=== PATIENT | male | born 1960 | race Hispanic/Latino ===

== ENCOUNTER 2018-01-31 14:23 | Emergency (ER) | payer OTHER ==
[2018-01-31] MEDS ORDERED: Bacitracin Zinc 1 Packet ONE (15:05)
--- NOTE | 2018-01-31 15:17 | RAD ---
3 VIEWS RIGHT WRIST: Date: 01/31/18 INDICATION: History of right wrist injury. COMPARISON: None. FINDINGS: There is a mildly displaced, transversely oriented fracture involving the distal radial shaft. The di stal fracture fragment is displaced dorsally and radially one cortex width. No additional fracture is evident. IMPRESSION: Distal radial shaft fracture. POS: [facility]
--- NOTE | 2018-01-31 15:18 | RAD ---
2 VIEWS RIGHT FOREARM: Date: 01/31/18 INDICATION: History of right arm injury with fracture. COMPARISON: None. FINDINGS: There is a transversely oriented fracture involving the distal radial shaft with displacement of the distal fracture fragment radially and posteriorly one cortex width. DRUJ and radiocapitellar alignmen t appear within normal limits. No additional fracture is grossly evident. IMPRESSION: Distal radial shaft fracture. POS: [facility]
== END 2018-01-31 15:27 | disposition home or self-care (01) ==
LOC: ERS 14:23
DX: S52.301A Unspecified fracture of shaft of right radius, initial encounter for closed fracture (principal); W31.9XXA Contact with unspecified machinery, initial encounter; Y99.0 Civilian activity done for income or pay; F17.210 Nicotine dependence, cigarettes, uncomplicated
CPT/HCPCS: 29125

== ENCOUNTER 2018-02-10 10:03 | Day surgery (SDC) | payer OTHER ==
[2018-02-09 13:33] VITALS: BMI 19.3
[2018-02-10] MEDS ORDERED: CEFAZOLIN/Water 2 GM/20 ML SYRINGE ONE (10:51)
[2018-02-10] MEDS ORDERED: Fentanyl 100 MCG/2 ML VIAL ONE ×2 (11:34→13:34)
[2018-02-10] MEDS ORDERED: Bupivacaine HCl 0.5%/Epinephrine 1:200,000/PF 30 ml Vial ONE (12:22)
[2018-02-10] MEDS ORDERED: HYDROcodone/Acetaminophen 5/325 mg Tablet ONE (15:04)
--- NOTE | 2018-02-10 15:15 | OP ---
DATE OF PROCEDURE: 02/10/2018 OPERATION: Open reduction internal fixation of right radial fracture. PREOPERATIVE DIAGNOSIS: Right radial shaft fracture with displacement. POSTOPERATIVE DIAGNOSIS: Right radial shaft fracture with displacement. COMPLICATIONS: None. ESTIMATED BLOOD LOSS: Minimal. SURGEON: Jerman Roberts M.D. MIL[employer] OPERATIONS OFFICER: Aden Suárez PA-C. IMPLANTS: Synthes 3.5 mm 6-hole LCDC plate. INDICATIONS: Mr. Mitchell is a 57-year-old male who fractured his forearm. He had displacement. He was indicated for open reduction and fixation to restore anatomic alignment and promote healing. Ris ks were reviewed. He elected to proceed with the operation. DESCRIPTION OF PROCEDURE: Mr. Mitchell was identified in the preoperative holding area. His correct extremity was marked. He was carried to the operating room. He was positioned supine. General anes thesia was induced. A multidisciplinary timeout was performed. The right upper extremity was preppe d and draped in sterile fashion. We began the procedure with a volar approach to the distal radius. We dissected down through the sub cutaneous tissues to the FCR tendon, the sheath was opened. We then reflected the FCR tendon lateral ly. We then developed the deep interval down to the radius. The radial artery was protected. At th is point, we exposed the underlying radius bone. We encountered the displaced fracture. We cleared the bony edges. We then used reduction clamps to hold the fracture in a reduced position. At this p oint, we applied our Synthes 3.5 mm plate. Six screws were placed, three distal and three proximal t o the fracture. These were placed in a compression technique. We took final images confirming hardw are placement, fracture was well reduced. There were no complications. At this point, we thoroughly irrigated all wounds and closed appropriately in layers. A splint was placed. The patient was take n to the recovery room in good condition without complication.
--- NOTE | 2018-02-10 15:33 | RAD ---
RIGHT WRIST THREE VIEWS INTRAOPERATIVE FLUOROSCOPY: History: Fracture. Internal fixation. FINDINGS/IMPRESSION: Intraoperative fluoroscopy was provided for internal fixation as performed by Dr. Roberts. Spot flu oroscopic images show long lobar compression plate transfixing the distal radial fracture in anatomic alignment. Fluoro time: 8 seconds. POS: [facility]
== END 2018-02-10 15:35 | disposition home or self-care (01) ==
LOC: SDC 10:03
PROVIDERS: ATTEND Orthopaedic Surgery
PROC: 0PSH0ZZ Reposition Right Radius, Open Approach (ICD-10-PCS; principal; 2018-02-10)
DX: S52.321A Displaced transverse fracture of shaft of right radius, initial encounter for closed fracture (principal)
CPT/HCPCS: 76001; 96374; C1713; J0670; J3010

== ENCOUNTER 2018-08-05 09:51 | Day surgery (SDC) | payer OTHER ==
[2018-08-04 14:37] VITALS: BMI 20.5
[2018-08-05] MEDS ORDERED: Ketorolac Tromethamine 30 MG/ML VIAL ONE (10:53)
[2018-08-05] MEDS ORDERED: Ondansetron PF 4 MG/2 ML Vial ONE (10:53)
[2018-08-05] MEDS ORDERED: Dexamethasone 20 MG/5 ML VIAL ONE (10:53)
[2018-08-05] MEDS ORDERED: PHENYLEPHRINE-NS 100 MCG/ML 10 ML SYRINGE ONE (10:53)
[2018-08-05] MEDS ORDERED: Bupivacaine PF 0.5% 30 ML VIAL ONE (11:00)
[2018-08-05] MEDS ORDERED: Fentanyl 100 MCG/2 ML VIAL ONE (11:12)
[2018-08-05] MEDS ORDERED: HYDROcodone/Acetaminophen 5/325 mg Tablet ONE (13:45)
--- NOTE | 2018-08-05 18:12 | OP ---
DATE OF PROCEDURE: 08/05/2018 OPERATION: Left radius hardware removal. PREOPERATIVE DIAGNOSES: Left radial fracture with painful hardware and sinus tract. POSTOPERATIVE DIAGNOSES: Left radial fracture with painful hardware and sinus tract. COMPLICATIONS: None. ESTIMATED BLOOD LOSS: Minimal. ANESTHESIA: General plus local. IMPLANTS: None. INDICATIONS: Mr. Mitchell is a 57-year-old male, who fractured his left radius. He was treated with plate fixation. His radius healed; however, he developed a chronic sinus tract down to the plate extending to the skin level. He has chronic pain and drainage. He was indicated for removal of hardware and excision of the sinus tract to eradicate infection. Risks have been reviewed in detail. He has elected to proceed with the operation. DESCRIPTION OF PROCEDURE: Mr. Mitchell was identified in the preoperative holding area. His correct extremity was marked. He was carried to the operating room. The left upper extremity was prepped and draped in sterile fashion. We began the procedure by opening the patient's previous scar. We dissected down through the subcutaneous tissues. We excised the sinus tract in an ellipsoid fashion. We curetted the tissues. The tract went deeply down to the plate level. We removed all screws from the plate. We removed some overlying bone with an osteotome as well and a rongeur. We then removed the plate itself. We curetted the bony holes and cleansed the bone with irrigation solution. We took a deep culture on the plate. At this point, we performed a final irrigation. We then closed with 2-0 Vicryl suture and 3-0 nylon for the skin. A sterile dressing was applied. The patient was taken to the recovery room in good condition without complication. Job ID: [id number]
== END 2018-08-05 14:15 | disposition home or self-care (01) ==
LOC: SDC 09:51
PROVIDERS: ATTEND Orthopaedic Surgery
PROC: 0PPJ04Z Removal of Internal Fixation Device from Left Radius, Open Approach (ICD-10-PCS; principal; 2018-08-05)
DX: T84.84XA Pain due to internal orthopedic prosthetic devices, implants and grafts, initial encounter (principal); T81.83XA Persistent postprocedural fistula, initial encounter
CPT/HCPCS: 87070; 87077; 87186; 87205; J1100; J1885; J2405; J3010; S0020

== ENCOUNTER 2019-04-12 14:09 | Emergency (ER) | payer SELFPAY ==
--- NOTE | 2019-04-12 14:33 | RAD ---
EXAM: 3 views of the right hand COMPARISON: None HISTORY: Laceration to the index finger FINDINGS: 3 views of the right hand shows a fracture of the tuft of the distal phalanx of the index f ramirez. No radiopaque foreign body is seen. No degenerative changes are seen. Moderate distal index finger soft tissue swelling is present. IMPRESSION: Tuft fracture of the distal phalanx of the index finger
[2019-04-12] MEDS ORDERED: Lidocaine 1% (PF) 30 ML VIAL ONE (15:22)
== END 2019-04-12 17:01 | disposition home or self-care (01) ==
LOC: ERS 14:09
DX: S62.630A Displaced fracture of distal phalanx of right index finger, initial encounter for closed fracture (principal); S61.210A Laceration without foreign body of right index finger without damage to nail, initial encounter; F17.210 Nicotine dependence, cigarettes, uncomplicated; W22.8XXA Striking against or struck by other objects, initial encounter; Y92.89 Other specified places as the place of occurrence of the external cause
CPT/HCPCS: J2001